=== PATIENT | female | born 1990 | race Caucasian/White ===

== ENCOUNTER 2023-08-30 15:53 | Inpatient (IN) | payer MEDICAID, SELFPAY ==
[2023-08-30 15:56] VITALS: BP 141/95; PULSE 96; RESP 18; TEMP 36.4; O2SAT 98; BMI 32.7
[2023-08-30 16:41] LABS: Absolute Lymphocyte Count 2.29 X10^3/uL (0.83-4.51); Basophil# 0.03 X10^3/uL; Basophil% 0.6 % (0-1); Eosinophil# 0.04 X10^3/uL; Eosinophils% 0.8 % (0-5); Hematocrit 44.3 % (37-47); Hemoglobin 14.5 g/dL (12.0-15.0); Lymphocyte # 2.29 X10^3/ul (0.83-4.51); Lymphocyte % 48.5 % (19-41); Mean Corp Hgb Conc 32.7 g/dL (32-36); Mean Corpuscular Hgb 30.8 pg (27.0-32.0); Mean Corpuscular Volume 94.1 fL (81-99); Mean Platelet Vol. 10.6 fl (6.2-12.0); Monocyte# 0.34 X10^3/uL; Monocyte% 7.2 % (0-10); NRBC Flagged by Analyzer 0 % (0-5); Neutrophil % 42.5 % (47-70); Platelet Count 148 K/mm3 (150-450); RBC Distribution Width CV 13.2 % (11.6-14.6); RBC Distribution Width SD 45.7 fl (35.1-43.9); Red Blood Count 4.71 M/mm3 (4.2-5.4); White Blood Count 4.7 K/mm3 (4.4-11.0)
[2023-08-30 17:09] LABS: Internal QC Validated? YES +Cl - CLEAR BKGD; Pregnancy, Serum, hCG Quali. NEGATIVE Negative
[2023-08-30 17:19] LABS: Anion Gap 8 (5-15); BUN 13 mg/dL (7-18); BUN/Creat Ratio 15.8 RATIO (10-20); Calcium,Total 7.9 mg/dL (8.5-10.1); Chloride 98 mmol/L (98-107); Creatinine, Serum 0.82 mg/dL (0.55-1.02); EST Glomerular Filtration Rate 85 mL/min (>60); Est Glom Filt Rate - Afr Amer 103 mL/min (>60); Estimated Creatinine Clearance 95.78 ml/min; Potassium 3.8 mmol/L (3.5-5.1); Sodium Level 133 mmol/L (136-145)
[2023-08-30 17:21] LABS: Amphetamine Urine VISTA NEGATIVE (<1000 ng/mL); Barbiturate Urine VISTA NEGATIVE (< 200 ng/mL); Benzodiazepine Urine VISTA NEGATIVE (< 200 ng/mL); Cocaine Urine VISTA NEGATIVE (< 300 ng/mL); Ecstacy Urine VISTA NEGATIVE (< 500 ng/mL); Methadone Urine VISTA NEGATIVE (< 300 ng/mL); PCP Urine VISTA NEGATIVE (< 25 ng/mL); THC Urine VISTA POSITIVE (< 50 ng/mL); Vista UDS pH Range 6
[2023-08-30 17:46] LABS: Glucose 642 mg/dL (74-106)
--- NOTE | 2023-08-30 17:55 | EDS_ITS ---
HPI <ELDER Fontaine - Last Filed: 08/30/23 18:35> History of Present Illness Chief Complaint: Substance Abuse Narrative Narrative: Patient is a 32-year-old female with history of alcohol abuse, type 2 diabetes diet depression. Patient currently does not have a PCP, patient does not take any medications daily. She is supposed to be on insulin however does not take any insulin. She was seen Wednesday at another hospital because she was vomiting, her blood sugar was greater than 400 at that time. Patient states that she is here today because she wants to get clean because her life is falling apart. PFSH <ELDER Fontaine - Last Filed: 08/30/23 18:35> [facility] Medical History (Updated 08/30/23 @ 18:35 by ELDER Fontaine) Anxiety Diabetes type 2, uncontrolled Tobacco abuse Allergy/AdvReac Type Severity Reaction Status Date / Time No Known Allergies Allergy Verified 08/30/23 15:56 Surgical History (Updated 08/30/23 @ 15:59 by Kamryn Wellington) H/O: Hx of tonsillectomy Social History Smoking Status: Current every day smoker tobacco type: cigarettes ROS <ELDER Fontaine - Last Filed: 08/30/23 18:35> ROS ED ROS Narrative Constitutional: Negative for fever, chills, weight loss, weakness Eyes: Negative for vision loss, vision change, double vision ENT: Negative for any sore throat, ear pain, congestion Cardiovascular: Negative for any chest pain, tightness, palpitations Respiratory: Negative for any cough, sputum production, hemoptysis, dyspnea, dyspnea on exertion, orthopnea Gastrointestinal: Negative for any abdominal pain, nausea, vomiting, diarrhea, constipation, blood in stool, blood in vomit : Negative for any urinary frequency, dysuria, retention, blood in urine Muscle skeletal: Negative for any muscle joint pain, stiffness, arthralgias, neck pain, back pain. Positive for myalgias Neurological: Negative for any headache, syncope, numbness or tingling, dizziness Skin: Negative for any rashes, lumps, itching, abrasions, lacerations Psychiatric: Negative for any depression, suicidal ideation, homicidal ideation. Positive for anxiety, stress Hematologic: Negative for any easy bruising, excessive bruising, easy bleeding Allergies: Negative for any eczema, hives, rash EXAM <ELDER Fontaine - Last Filed: 08/30/23 18:35> Physical Exam Narrative Exam Narrative: Vital signs reviewed. HEET: Head normocephalic atraumatic, TMs clear bilaterally. Posterior pharynx is clear, dry mucous membranes. Nares clear bilaterally. Neck: Supple with no lymphadenopathy or tenderness. No signs of meningismus, negative jolt sign. Cardiac: Regular rate and rhythm no murmurs gallops or rubs, equal peripheral pulses bilaterally. Respiratory: Lungs clear to auscultation bilaterally. No chest tenderness. Abdomen: Soft, nontender, nondistended. No abdominal bruit or pulsatile masses. No hepatosplenomegaly Extremities: No peripheral edema, no signs of gross trauma or deformity. Active full range of motion of all extremities. Neuro: Cranial nerves II through XII intact, no focal neurological deficits. Skin: Clean dry and intact with no rash, purpura, petechiae, vesicles or pustules. Backs/flank: No CVA tenderness, no midline spinal tenderness, no deformity. Psych: Normal mood and affect. No SI, HI or acute psychosis. Const Vital Signs: 08/30/23 15:56 Temperature 97.6 F L Temperature Source Temporal Pulse Rate 96 Respiratory Rate 18 Blood Pressure 141/95 H Blood Pressure Mean 110 Pulse Ox 98 Oxygen Delivery Method Room Air <Dr. Candido Lemos, - Last Filed: 08/30/23 18:17> Physical Exam Const Vital Signs: 08/30/23 15:56 Temperature 97.6 F L Temperature Source Temporal Pulse Rate 96 Respiratory Rate 18 Blood Pressure 141/95 H Blood Pressure Mean 110 Pulse Ox 98 Oxygen Delivery Method Room Air [facility] <ELDER Fontaine - Last Filed: 08/30/23 18:35> [facility] Lab Data Attestation: I reviewed the patient's lab results. Labs: Laboratory Results - last 24 hr 08/30/23 08/30/23 16:20 16:30 WBC 4.7 RBC 4.71 Hgb 14.5 Hct 44.3 MCV 94.1 MCH 30.8 MCHC 32.7 RDW Std Deviation 45.7 H RDW Coeff of Amanuel 13.2 Plt Count 148 L MPV 10.6 Immature Gran % (Auto) 0.400 Neut % (Auto) 42.5 L Lymph % (Auto) 48.5 H [place] % (Auto) 7.2 Eos % (Auto) 0.8 Baso % (Auto) 0.6 Absolute Neuts (auto) 2.0 Absolute Lymphs (auto) 2.29 Nucleated RBC % 0 Sodium 133 L Potassium 3.8 Chloride 98 Carbon Dioxide 27.0 Anion Gap 8 BUN 13 Creatinine 0.82 Estim Creat Clear Calc 95.78 Est GFR (MDRD) Af Amer 103 Est GFR (MDRD) Non-Af 85 BUN/Creatinine Ratio 15.8 Glucose 642 H* Calcium 7.9 L Serum , Qual NEGATIVE Urine Opiates Screen NEGATIVE Urine Methadone Screen NEGATIVE Ur Barbiturates Screen NEGATIVE Ur Phencyclidine Scrn NEGATIVE Ur Amphetamines Screen NEGATIVE MDMA (Ecstasy) Screen NEGATIVE U Benzodiazepines Scrn NEGATIVE Urine Cocaine Screen NEGATIVE U Cannabinoids Screen POSITIVE H Ur Drug Screen Comment Ethyl Alcohol 97.0 Treatment and Re-Evaluation :: Patient is alert and orient x4. Patient did sign the contract. Here for detox from alcohol, patient is also concerned because her blood sugar has been elevated she does not take her insulin. Patient's laboratory values showed normal CBC, patient's chemistries showed a sodium of 133, patient's blood glucose was 642, patient's serum was negative. Drugs of abuse was positive for marijuana which she does states she does as well as alcohol at 97. Patient is currently not in DKA, patient's carbon dioxide is normal, patient has no anion gap. For the patient's blood glucose, patient was given 2 L of normal saline as well as 15 units of subcu insulin. Patient will be admitted to the hospital for alcohol withdrawal, hyperglycemia, noncompliance. <Dr. Candido Lemos, DO - Last Filed: 08/30/23 18:17> [facility] Narrative Medical decision making narrative: I have personally performed a face to face assessment of the patient and have reviewed the LESLI Note. I performed a substantive portion of the visit including all aspects of the following. My rousseau findings include: History: Patient presents requesting detox from alcohol. Patient states she drinks a lot every day. Patient states she has never been through detox before. Patient denies any suicidal homicidal ideations. Patient states her last drink was approximately 12 hours prior to arrival. Patient denies any tremors or seizures. Patient denies any nausea or vomiting. Exam: Vital signs are stable. Patient is afebrile. Patient is in no acute distress. Oral mucosa is pink and moist. Neck is supple. Trachea is midline. No JVD. Heart was regular rate and rhythm. Lungs are clear and equal bilaterally. Abdomen is soft. Bowel sounds are normal. Cranial nerves II through XII are intact. There are no focal motor or sensory deficits noted. Medical Decision Making: Medical screening labs will be obtained. CBC will be obtained to assess for leukocytosis and anemia. Basic metabolic profile will be obtained to assess for electrolyte abnormality and renal function. Serum hCG will be obtained to assess for . Serum alcohol level will be obtained to assess for alcohol intoxication. Urine tox screen will be obtained to assess for substance abuse. CBC was reviewed and was within normal limits. Basic metabolic profile was reviewed. Glucose was 642. CO2 was normal at 27 anion gap was normal. Sodium was slightly low at 133. Serum hCG was reviewed and was negative. Urine tox sc reen was reviewed and was positive for cannabinoids. Serum alcohol level was reviewed and was 97. She was given IV fluids. Patient was given a dose of insulin. Case will be discussed with the hospitalist for admission for alcohol detox. Patient understands and is agreeable with the plan. All questions were answered. Lab Data Labs: Laboratory Results - last 24 hr 08/30/23 08/30/23 16:20 16:30 WBC 4.7 RBC 4.71 Hgb 14.5 Hct 44.3 MCV 94.1 MCH 30.8 MCHC 32.7 RDW Std Deviation 45.7 H RDW Coeff of Amanuel 13.2 Plt Count 148 L MPV 10.6 Immature Gran % (Auto) 0.400 Neut % (Auto) 42.5 L Lymph % (Auto) 48.5 H [place] % (Auto) 7.2 Eos % (Auto) 0.8 Baso % (Auto) 0.6 Absolute Neuts (auto) 2.0 Absolute Lymphs (auto) 2.29 Nucleated RBC % 0 Sodium 133 L Potassium 3.8 Chloride 98 Carbon Dioxide 27.0 Anion Gap 8 BUN 13 Creatinine 0.82 Estim Creat Clear Calc 95.78 Est GFR (MDRD) Af Amer 103 Est GFR (MDRD) Non-Af 85 BUN/Creatinine Ratio 15.8 Glucose 642 H* Calcium 7.9 L Serum , Qual NEGATIVE Urine Opiates Screen NEGATIVE Urine Methadone Screen NEGATIVE Ur Barbiturates Screen NEGATIVE Ur Phencyclidine Scrn NEGATIVE Ur Amphetamines Screen NEGATIVE MDMA (Ecstasy) Screen NEGATIVE U Benzodiazepines Scrn NEGATIVE Urine Cocaine Screen NEGATIVE U Cannabinoids Screen POSITIVE H Ur Drug Screen Comment Ethyl Alcohol 97.0 Discharge Plan Triage Chief Complaint: Substance Abuse ED Midlevel Provider: George Wild ED Provider: Candido Lemos Dx/Rx/DC Orders Clinical Impression: H/O medication noncompliance, Alcohol abuse, Acute hyperglycemia, Alcohol withdrawal Primary Care Provider: Care Physician,No Primary Referrals: Care Physician,No Primary [Primary Care Provider] - Disposition Disposition: Acute Care Hospital [facility]
[2023-08-30] MEDS: 0.9% Normal Saline (1000mL) 1,000 ML 999 ML IV ×2 (18:22)
[2023-08-30] MEDS: Insulin Lispro 100 UNIT/ML INSULN.PEN 15 UNIT SC (18:27)
--- NOTE | 2023-08-30 18:32 | HP.PCM.HOS_ITS ---
HPI - General General Date of Admission: 08/30/23 Date of Service: 08/30/23 Chief Complaint: Alcohol detox HPI Narrative CHUCK IZAGUIRRE, is a 32 F who presented to the emergency department at [facility] on 08/30/2023 requesting alcohol detox. Patient reports that she drinks extensively and she has done so for a significant amount of time. She is never gone through detox program previously. She is unable to tell me ho w much she drinks light daily but she does drink a lot of hard liquor. She developed some nausea and vomiting and reported some blood-streaked emesis for which she went to [place] emergency department on Wednesday. She was discharged there however she feels like she needs to get her life together so she came to the emergency department here for detox. She has had no further emesis or blood-streaked emesis since that point time. She has a history of diabetes and is supposed to be on insulin however she has not been on this and she has significantly elevated blood sugars. She currently reports some mild tremor but no significant withdrawal symptoms as of yet. Vital signs on presentation were unremarkable. Her CBC is unremarkable other than thrombocytopenia with a platelet count of 148,000. Her hemoglobin is 14.5. She has mild hyponatremia on her chemistry panel at 133 however I suspect this is pseudohyponatremia as her glucose is 642. test is negative. Her tox screen is positive for cannabis but otherwise unremarkable. Ethyl alcohol level is 97.0. She reports her last drink was the yesterday. [facility] Medical History Anxiety Diabetes type 2, uncontrolled Tobacco abuse Home Medications Unobtainable 08/30/23 [History Last Taken Unknown] Allergy/AdvReac Type Severity Reaction Status Date / Time No Known Allergies Allergy Verified 08/30/23 15:56 no significant family history Surgical History H/O: Hx of tonsillectomy Social History (Updated 08/30/23 @ 21:[address] Mary Bowles DO) Smoking Status: Current every day smoker tobacco type: cigarettes alcohol intake: current alcohol intake frequency: 3 or more drinks per day details: Patient reports she drinks a lot of hard liquor substance use type: marijuana ROS Constitutional Constitutional: Denies anorexia, change in weight, chills, fatigue, fever(s), malaise, night sweats, weakness or other Eyes Eyes: Denies blurry vision, change in eye color, change in vision, discharge from eye(s), double vision, erythema, eye pain, loss of vision or other ENT HEENT: Denies abnormal hearing, dysphagia, ear pain, epistaxis, headache(s), hearing loss, nasal congestion, nasal discharge, post nasal drip, sinus pressure, sore throat or other Cardiovascular Cardiovascular: Denies chest pain, claudication, dyspnea on exertion, edema, lightheadedness, orthopnea, palpitations, paroxysmal nocturnal dyspnea, rapid h eart rate, syncope or other Respiratory/Chest Respiratory/Chest: Denies cough, dyspnea, excessive phlegm production, hemoptysis, productive cough, shortness of breath at rest, shortness of breath with exertion, wheezing or other Gastrointestinal Gastrointestinal: Reports hematemesis, nausea and vomiting; Denies abdominal pain, coffee ground emesis, constipation, diarrhea, dyspepsia, hematochezia, lo ose stools, melena or other Genitourinary Genitourinary: Denies burning urination, difficulty urinating, dysuria, hematuria, nocturia, urinary frequency, urinary hesitancy, urinary incontinence, urinary urgency or other Musculoskeletal Musculoskeletal: Denies arthralgias, back pain, joint pain, joint stiffness, joint swelling, myalgias, neck pain or other Neurologic Neurologic: Reports tremor(s); Denies abnormal gait, abnormal speech, confusion, disequilibrium, dizziness, focal weakness, headache(s), numbness, paresthesias, seizure-like activity, seizures, syncope, tingling or other Psychiatric Psychiatric: Reports anxiety and depression; Denies homicidal ideation, suicidal ideation or other Endocrine Endocrinology: Reports polydipsia and polyuria; Denies change in body appearance, cold intolerance, excessive sweating, heat intolerance or other Hematologic/Lymphatic Hematologic/Lymphatic: Denies anemia, easy bleeding, easy bruising, lymphadenopathy or other Allergic/Immunologic Allergic/Immunologic: Denies rhinitis, hives, eczemia, asthma or other Vital Signs Vital Signs Vital Signs: 08/30/23 15:56 Temperature 97.6 F L Temperature Source Temporal Pulse Rate 96 Respiratory Rate 18 Blood Pressure 141/95 H Blood Pressure Mean 110 Pulse Ox 98 Oxygen Delivery Method Room Air Weight Weight: 94.755 kg Body Mass Index (BMI) 32.7 Physical Exam Const alert, oriented x3, no apparent distress and well nourished Constitutional Narrative: Obese, middle-aged, white female, sitting up in bed, appears comfortable, voice is somewhat hoarse General Appearance: cooperative HEENT normocephalic, head/scalp atraumatic and hearing grossly normal bilaterally HEENT Narrative: Mucous membranes are dry, dentition is good, Mallampati is 3, no thrush Eyes PERRL, EOMs intact bilaterally and conjunctivae normal Eyes Narrative: No scleral icterus Resp normal respiratory effort, no retractions, no use of accessory muscles and clear to auscultation bilaterally Auscultation: Negative for rales, rhonchi or wheezes Cardio regular rhythm, S1 normal heart sound, S2 normal heart sound, no murmurs, no rub, no gallops and no clicks Cardio Narrative: Mild tachycardia GI normal to inspection, nondistended, normoactive bowel sounds, soft to palpation and non-tender Extremity no clubbing, cyanosis or edema Extremity Narrative: Pedal pulses are 2+ Neuro oriented x3, CN's II-XII intact bilaterally, moves all extremities and no focal motor deficits Speech: speech normal Motor Exam: strength 5/5 throughout Psych affect normal Psych Narrative: Pleasant, interacts appropriately, eye contact is good Results Lab / Micro Data 08/30/23 16:30 08/30/23 16:30 Labs: Laboratory Results - last 24 hr 08/30/23 16:20: Urine Opiates Screen NEGATIVE, Urine Methadone Screen NEGATIVE, Ur Barbiturates Screen NEGATIVE, Ur Phencyclidine Scrn NEGATIVE, Ur Amphetamines Screen NEGATIVE, MDMA (Ecstasy) Screen NEGATIVE, U Benzodiazepines Scrn NEGATIVE, Urine Cocaine Screen NEGATIVE, U Cannabinoids Screen POSITIVE H, Ur Drug Screen Comment 08/30/23 16:30: WBC 4.7, RBC 4.71, Hgb 14.5, Hct 44.3, MCV 94.1, MCH 30.8, MCHC 32.7, RDW Std Deviation 45.7 H, RDW Coeff of Amanuel 13.2, Plt Count 148 L, MPV 10.6, Immature Gran % (Auto) 0.400, Neut % (Auto) 42.5 L, Lymph % (Auto) 48.5 H, [place] % (Auto) 7.2, Eos % (Auto) 0.8, Baso % (Auto) 0.6, Absolute Neuts (auto) 2.0, Absolute Lymphs (auto) 2.29, Nucleated RBC % 0, Sodium 133 L, Potassium 3.8, Chloride 98, Carbon Dioxide 27.0, Anion Gap 8, BUN 13, Creatinine 0.82, Estim Creat Clear Calc 95.78, Est GFR (MDRD) Af Amer 103, Est GFR (MDRD) Non-Af 85, BUN/Creatinine Ratio 15.8, Glucose 642 H*, Calcium 7.9 L, Serum , Qual NEGATIVE, Ethyl Alcohol 97.0 Assessment & Plan Assessment/Plan (1) Admitted to alcohol detoxification center: (2) Alcohol abuse: (3) Hyperglycemia: (4) Marijuana abuse: (5) Hematemesis: PLAN: Plan Acute alcohol withdrawal -Start phenobarbital taper -CIWA with as needed Ativan -Supportive medications -Thiamine and folate -180 consultation-patient plans for outpatient follow-up after discharge DM-2 with hyperglycemia -Patient has been on no medications for her diabetes -We will start subcu basal insulin and titrate as needed -SSI -Accu-Cheks as ordered -Carb controlled diet -Start lisinopril 2.5 mg daily for renal protection purposes Hematemesis -Resolved-patient had 1 episode on Wednesday -No further hematemesis or emesis since that point time -Hemoglobin is stable -Monitor clinically -We will start PPI as I do suspect she probably has gastritis with her alcohol use Marijuana use -Recommend cessation Tobacco abuse -Nicotine replacement therapy available -Recommend cessation DVT prophylaxis -Low risk -Recommend early and frequent ambulation CODE STATUS -full code Charges/Coding Visit Charges Inpatient E&M: 03344 Init Hosp L2
[2023-08-30 19:13] LABS: Hemoglobin A1c 11.9 % (3.8-5.6)
[2023-08-30 19:28] LABS: Bedside Glucose 335 mg/dL (74-106)
[2023-08-30 20:49] LABS: Bedside Glucose 211 mg/dL (74-106)
[2023-08-30 21:00] VITALS: BP 138/78; PULSE 80; RESP 16; RESP 18; O2SAT 94
[2023-08-30 22:12] VITALS: BMI 32.6
[2023-08-30 22:25] VITALS: BP 159/106; PULSE 71; RESP 20; TEMP 37; O2SAT 99
[2023-08-30] MEDS: Pantoprazole Sodium 40 MG Tablet PO (22:48)
[2023-08-30 22:49] VITALS: PULSE 90
[2023-08-30] MEDS: Phenobarbital 32.4 MG Tablet 64.8 MG PO (23:00)
[2023-08-30] MEDS: 0.9% Saline Lock 10 ML Syringe IV (23:06)
[2023-08-30] MEDS: Lactated Ringers 1,000 ML 150 ML IV (23:06)
[2023-08-30 23:18] VITALS: BP 148/100; PULSE 92; RESP 20; TEMP 37.1; O2SAT 100
[2023-08-30 23:20] LABS: Bedside Glucose 145 mg/dL (74-106)
[2023-08-30] MEDS: Insulin Glargine-YFGN 100 UNIT/ML Pen 20 UNIT SC (23:28)
[2023-08-30] MEDS: hydrOXYzine PAM 25 MG Capsule 50 MG PO (23:42)
[2023-08-31 00:53] LABS: Bedside Glucose 199 mg/dL (74-106)
[2023-08-31] MEDS: Phenobarbital 32.4 MG Tablet 64.8 MG PO ×6 (03:03→22:34)
[2023-08-31 04:21] VITALS: BP 157/101; PULSE 77; RESP 16; TEMP 36.6; O2SAT 97
[2023-08-31] MEDS: Lisinopril 2.5 MG Tablet PO (04:26)
[2023-08-31] MEDS: Lactated Ringers 1,000 ML 150 ML IV (05:48)
[2023-08-31 08:36] LABS: Anion Gap 4 (5-15); BUN 9 mg/dL (7-18); BUN/Creat Ratio 13.8 RATIO (10-20); Calcium,Total 7.7 mg/dL (8.5-10.1); Chloride 105 mmol/L (98-107); Creatinine, Serum 0.65 mg/dL (0.55-1.02); EST Glomerular Filtration Rate 112 mL/min (>60); Est Glom Filt Rate - Afr Amer 135 mL/min (>60); Estimated Creatinine Clearance 120.83 ml/min; Glucose 140 mg/dL (74-106); Magnesium 1.7 mg/dL (1.6-2.6); Phosphorus 3.7 mg/dL (2.5-4.9); Potassium 3.2 mmol/L (3.5-5.1); Sodium Level 139 mmol/L (136-145)
[2023-08-31 09:13] VITALS: BP 125/84; PULSE 99; RESP 18; TEMP 36.9; O2SAT 97
[2023-08-31] MEDS: Pantoprazole Sodium 40 MG Tablet PO (09:18)
[2023-08-31] MEDS: Thiamine Hydrochloride 100 MG Tablet PO (09:18)
[2023-08-31] MEDS: Folic Acid 1 MG Tablet PO (09:18)
--- NOTE | 2023-08-31 10:22 | PCM.PN.HOSP ---
Reason for Visit Reason for Visit: Diagnoses Alcohol abuse, uncomplicated (08/30/23) Cannabis abuse, uncomplicated (08/30/23) Hematemesis (08/30/23) Hyperglycemia, unspecified (08/30/23) Subjective Subjective Feeling better today on present medications, no acute complaints Objective Data Objective Data Vital Signs: Vital Signs Temp Pulse Resp BP Pulse Ox O2 Del Method 98.4 F 99 18 125/84 H 97 Room Air 08/31/23 09:13 08/31/23 09:13 08/31/23 09:13 08/31/23 09:13 08/31/23 09:13 08/31/23 09:13 Oxygen Delivery Method Room Air Weight: 94.5 kg Body Mass Index (BMI) 32.6 Intake & Output: Intake and Output for Last 24 Hours 08/29/23 08/30/23 08/31/23 23:59 23:59 23:59 Intake Total 1999 1500 / 1500 Balance 1999 1500 / 1500 Lab / Micro Data 08/30/23 16:30 08/31/23 06:20 Labs: Laboratory Results - last 24 hr 08/30/23 16:20: Urine Opiates Screen NEGATIVE, Urine Methadone Screen NEGATIVE, Ur Barbiturates Screen NEGATIVE, Ur Phencyclidine Scrn NEGATIVE, Ur Amphetamines Screen NEGATIVE, MDMA (Ecstasy) Screen NEGATIVE, U Benzodiazepines Scrn NEGATIVE, Urine Cocaine Screen NEGATIVE, U Cannabinoids Screen POSITIVE H, Ur Drug Screen Comment 08/30/23 16:30: WBC 4.7, RBC 4.71, Hgb 14.5, Hct 44.3, MCV 94.1, MCH 30.8, MCHC 32.7, RDW Std Deviation 45.7 H, RDW Coeff of Amanuel 13.2, Plt Count 148 L, MPV 10.6, Immature Gran % (Auto) 0.400, Neut % (Auto) 42.5 L, Lymph % (Auto) 48.5 H, [place] % (Auto) 7.2, Eos % (Auto) 0.8, Baso % (Auto) 0.6, Absolute Neuts (auto) 2.0, Absolute Lymphs (auto) 2.29, Nucleated RBC % 0, Sodium 133 L, Potassium 3.8, Chloride 98, Carbon Dioxide 27.0, Anion Gap 8, BUN 13, Creatinine 0.82, Estim Creat Clear Calc 95.78, Est GFR (MDRD) Af Amer 103, Est GFR (MDRD) Non-Af 85, BUN/Creatinine Ratio 15.8, Glucose 642 H*, Hemoglobin A1c 11.9 H, Calcium 7.9 L, Serum , Qual NEGATIVE, Ethyl Alcohol 97.0 08/30/23 19:09: POC Glucose 335 H 08/30/23 20:31: POC Glucose 211 H 08/30/23 22:47: POC Glucose 145 H 08/30/23 23:26: POC Glucose 199 H 08/31/23 06:20: Sodium 139, Potassium 3.2 L, Chloride 105, Carbon Dioxide 30.0, Anion Gap 4 L, BUN 9, Creatinine 0.65, Estim Creat Clear Calc 120.83, Est GFR (MDRD) Af Amer 135, Est GFR (MDRD) Non-Af 112, BUN/Creatinine Ratio 13.8, Glucose 140 H, Calcium 7.7 L, Phosphorus 3.7, Magnesium 1.7, TSH 1.90 Physical Exam Narrative General: Alert, oriented, no apparent distress HEENT: Atraumatic, normocephalic Eyes: extraocular movements grossly intact Neck: Supple Respiratory: normal respiratory effort Cardiovascular: no edema appreciated GI: nondistended Extremities: Moving all extremities Neuro: No overt focal neurological deficits Psych: Cooperative Assessment & Plan Assessment/Plan (1) Admitted to alcohol detoxification center: (2) Alcohol abuse: (3) Hyperglycemia: (4) Marijuana abuse: (5) Hematemesis: PLAN: Plan Acute alcohol withdrawal -Start phenobarbital taper -CIWA with as needed Ativan -Supportive medications -Thiamine and folate -180 consultation-patient plans for outpatient follow-up after discharge -08/31: Feeling better on present medications, continue taper DM-2 with hyperglycemia -Patient has been on no medications for her diabetes -We will start subcu basal insulin and titrate as needed -SSI -Accu-Cheks as ordered -Carb controlled diet -Start lisinopril 2.5 mg daily for renal protection purposes -08/31: Reports her PCP left so she has not been able to get her insulin, patient discussed with case management and social work, doing much better on present regimen Hematemesis -Resolved-patient had 1 episode on Wednesday -No further hematemesis or emesis since that point time -Hemoglobin is stable -Monitor clinically -We will start PPI as I do suspect she probably has gastritis with her alcohol use -08/31: Has not had further episode overnight Marijuana use -Recommend cessation Tobacco abuse -Nicotine replacement therapy available -Recommend cessation DVT prophylaxis -Low risk -Recommend early and frequent ambulation CODE STATUS -full code Charges/Coding Visit Charges Inpatient E&M: 70437 Subs Hosp L1
[2023-08-31 11:23] LABS: Bedside Glucose 131 mg/dL (74-106)
[2023-08-31] MEDS: Insulin Lispro 100 UNIT/ML INSULN.PEN SC ×3 (11:36→22:36)
[2023-08-31 11:50] LABS: Bedside Glucose 224 mg/dL (74-106)
[2023-08-31 13:05] VITALS: O2SAT 97
--- NOTE | 2023-08-31 13:15 | ADDICTION ---
This health underwriter met with PT to conduct ASAM, MSE, AUDIT assessments and to plan for d/c. PT A+Ox4 and participated actively. All assessments completed and placed in PT's chart. PT plans to f/u with [facility] for follow-up intensive outpatient treatment services. PT did not indicate a need for transportation post d/c from [facility].
--- NOTE | 2023-08-31 15:05 | CHAPLAIN ---
Type of Pastoral Visit _x__ Initial Visit ___ Follow-up Visit ___ On-call Visit ___ General Patient Visit ___ Spiritual Assessment ___ Family Conference ___ Bereavement ___ Rapid Response ___ Code Blue ___ Other (describe below) Pastoral Care Referral From _x__ Patient ___ Family ___ Nurse ___ Physician ___ Surgery Attendant ___ Fabrication And Assembly Supervisor ___ Other (describe below) Sacrament/Intervention ___ Active listening ___ Anointing ___ Caodaism ___ Bereavement ___ Communion ___ [place] exploration ___ ___ Life review ___ Prayer ___ Reconciliation ___ Sacrament of Sick _x__ Supportive presence ___ Wedding ___ Other (describe below) Pastoral Comments introduced self and role to patient; pt has been resting; pt says that she is just so tired and I apologize about not being awake or alert; pt indicates thanks for the offer but she just can't stay awake right now
[2023-08-31] MEDS: hydrOXYzine PAM 25 MG Capsule 50 MG PO (17:05)
[2023-08-31 17:12] VITALS: BP 153/99; PULSE 70; RESP 16; TEMP 37.1; O2SAT 95
[2023-08-31 17:43] LABS: Bedside Glucose 276 mg/dL (74-106)
[2023-08-31] MEDS: Insulin Glargine-YFGN 100 UNIT/ML Pen 20 UNIT SC (21:58)
[2023-08-31 22:18] LABS: Bedside Glucose 328 mg/dL (74-106)
[2023-08-31 22:30] VITALS: BP 144/94; PULSE 74; RESP 16; TEMP 36.7; O2SAT 96
[2023-08-31] MEDS: Loperamide 2 MG Capsule PO (22:35)
[2023-08-31] MEDS: Dicyclomine 10 MG Capsule 20 MG PO (22:35)
[2023-09-01] VITALS (8 sets, daily range): BP systolic 144–162; BP diastolic 88–114; PULSE 64–76; RESP 16–17; TEMP 36.6–37; O2SAT 96–100
[2023-09-01] MEDS: Phenobarbital 32.4 MG Tablet 64.8 MG PO ×6 (02:47→22:03)
[2023-09-01 06:51] LABS: Bedside Glucose 143 mg/dL (74-106)
[2023-09-01 07:23] LABS: Anion Gap 5 (5-15); BUN 6 mg/dL (7-18); BUN/Creat Ratio 12.7 RATIO (10-20); Calcium,Total 7.9 mg/dL (8.5-10.1); Chloride 108 mmol/L (98-107); Creatinine, Serum 0.47 mg/dL (0.55-1.02); EST Glomerular Filtration Rate 161 mL/min (>60); Est Glom Filt Rate - Afr Amer 195 mL/min (>60); Estimated Creatinine Clearance 167.11 ml/min; Glucose 161 mg/dL (74-106); Potassium 3.5 mmol/L (3.5-5.1); Sodium Level 141 mmol/L (136-145)
[2023-09-01] MEDS: Thiamine Hydrochloride 100 MG Tablet PO (07:46)
[2023-09-01] MEDS: Folic Acid 1 MG Tablet PO (07:46)
[2023-09-01] MEDS: Pantoprazole Sodium 40 MG Tablet PO (07:47)
[2023-09-01] MEDS: Lisinopril 2.5 MG Tablet PO (07:47)
--- NOTE | 2023-09-01 09:58 | PCM.PN.HOSP ---
Reason for Visit Reason for Visit: Diagnoses Alcohol abuse, uncomplicated (08/30/23) Cannabis abuse, uncomplicated (08/30/23) Hematemesis (08/30/23) Hyperglycemia, unspecified (08/30/23) Subjective Subjective Feeling little bit better, tolerating medication Objective Data Objective Data Vital Signs: Vital Signs Temp Pulse Resp BP Pulse Ox O2 Del Method 98.3 F 70 17 158/103 H 100 Room Air 09/01/23 07:51 09/01/23 07:51 09/01/23 07:51 09/01/23 07:51 09/01/23 07:51 09/01/23 07:51 Oxygen Delivery Method Room Air Weight: 94.5 kg Body Mass Index (BMI) 32.6 Intake & Output: Intake and Output for Last 24 Hours 08/30/23 08/31/23 09/01/23 23:59 23:59 23:59 Intake Total 1999 3280 / 3280 Balance 1999 3280 / 3280 Lab / Micro Data 08/30/23 16:30 09/01/23 06:30 Labs: Laboratory Results - last 24 hr 08/31/23 06:50: POC Glucose 131 H 08/31/23 11:31: POC Glucose 224 H 08/31/23 17:08: POC Glucose 276 H 08/31/23 21:58: POC Glucose 328 H 09/01/23 06:30: Sodium 141, Potassium 3.5, Chloride 108 H, Carbon Dioxide 28.0, Anion Gap 5, BUN 6 L, Creatinine 0.47 L, Estim Creat Clear Calc 167.11, Est GFR (MDRD) Af Amer 195, Est GFR (MDRD) Non-Af 161, BUN/Creatinine Ratio 12.7, Glucose 161 H, Calcium 7.9 L, POC Glucose 143 H Physical Exam Narrative General: Alert, oriented, no apparent distress HEENT: Atraumatic, normocephalic Eyes: extraocular movements grossly intact Neck: Supple Respiratory: normal respiratory effort Cardiovascular: no edema appreciated GI: nondistended Extremities: Moving all extremities Neuro: No overt focal neurological deficits Psych: Cooperative Assessment & Plan Assessment/Plan (1) Admitted to alcohol detoxification center: (2) Alcohol abuse: (3) Hyperglycemia: (4) Marijuana abuse: (5) Hematemesis: PLAN: Plan Acute alcohol withdrawal -Start phenobarbital taper -CIWA with as needed Ativan -Supportive medications -Thiamine and folate -180 consultation-patient plans for outpatient follow-up after discharge -08/31: Feeling better on present medications, continue taper -09/01: Tolerating medicine, feeling better, anxious to go home, if doing well tomorrow may be able to DC DM-2 with hyperglycemia -Patient has been on no medications for her diabetes -We will start subcu basal insulin and titrate as needed -SSI -Accu-Cheks as ordered -Carb controlled diet -Start lisinopril 2.5 mg daily for renal protection purposes -08/31: Reports her PCP left so she has not been able to get her insulin, patient discussed with case management and social work, doing much better on present regimen -09/01: Tolerating present regimen Hematemesis -Resolved-patient had 1 episode on Wednesday -No further hematemesis or emesis since that point time -Hemoglobin is stable -Monitor clinically -We will start PPI as I do suspect she probably has gastritis with her alcohol use -08/31: Has not had further episode overnight -09/01: Continue PPI, resolved Marijuana use -Recommend cessation Tobacco abuse -Nicotine replacement therapy available -Recommend cessation DVT prophylaxis -Low risk -Recommend early and frequent ambulation CODE STATUS -full code Charges/Coding Visit Charges Inpatient E&M: 36794 Subs Hosp L1
[2023-09-01] MEDS: Insulin Lispro 100 UNIT/ML INSULN.PEN SC ×3 (10:55→22:03)
[2023-09-01 11:32] LABS: Bedside Glucose 283 mg/dL (74-106)
[2023-09-01] MEDS: Lisinopril 5 MG Tablet PO (19:09)
[2023-09-01] MEDS: Insulin Glargine-YFGN 100 UNIT/ML Pen 20 UNIT SC (22:04)
[2023-09-01 22:25] LABS: Bedside Glucose 282 mg/dL (74-106)
[2023-09-02 02:00] LABS: Bedside Glucose 277 mg/dL (74-106)
[2023-09-02] MEDS: Phenobarbital 32.4 MG Tablet 64.8 MG PO ×3 (02:29→12:50)
[2023-09-02 02:30] VITALS: BP 135/98; PULSE 66; RESP 16; TEMP 36.6; O2SAT 99
[2023-09-02] MEDS: Gabapentin 300 MG Capsule PO (05:02)
[2023-09-02] MEDS: hydrOXYzine PAM 25 MG Capsule 50 MG PO (05:02)
[2023-09-02] MEDS: Dicyclomine 10 MG Capsule 20 MG PO (05:02)
[2023-09-02] MEDS: Ondansetron 8 MG Tablet PO (05:02)
[2023-09-02] MEDS: Insulin Lispro 100 UNIT/ML INSULN.PEN SC ×2 (06:10→11:10)
[2023-09-02 07:07] LABS: Bedside Glucose 157 mg/dL (74-106)
[2023-09-02 07:29] VITALS: O2SAT 95
[2023-09-02 08:00] VITALS: BP 140/97; PULSE 66; RESP 18; TEMP 37; O2SAT 100
[2023-09-02] MEDS: Pantoprazole Sodium 40 MG Tablet PO (08:03)
[2023-09-02] MEDS: Folic Acid 1 MG Tablet PO (08:03)
[2023-09-02] MEDS: Lisinopril 2.5 MG Tablet PO (08:03)
[2023-09-02] MEDS: Thiamine Hydrochloride 100 MG Tablet PO (08:03)
--- NOTE | 2023-09-02 09:29 | CASEMGMT ---
Discharge Planning A list of?PCP providers including quality and resource use data and consistent with the patient's preferred geographic region, medical needs, and insurance network was created directly from the [facility] website. This list was provided to the RN CM. Francia Saavedra, Discharge Planning Asst.
[2023-09-02 11:10] VITALS: BP 125/85; PULSE 64; RESP 18; TEMP 36.8; O2SAT 98
[2023-09-02] MEDS: Lisinopril 10 MG Tablet PO (11:12)
--- NOTE | 2023-09-02 11:36 | CASEMGMT ---
KRYSTA CM in to pt. room and provided pt. with PCP list that had been prepared by discharge maintenance planning clerk. Pt. states she is comfortable setting up her own PCP appt. Pt. was also provided with a script for a glucometer and supplies. Pt. states she has been a diabetic since she was 16 and feels comfortable with administering her insulin and using the glucometer to check her blood glucose. Pt. denies having any questions/concerns at this time.
--- NOTE | 2023-09-02 12:51 | PCM.DC ---
Discharge Instructions Diet Discharge Diet: Carb Control Diet Activity Discharge Activity: Return to Normal Activity Follow Up Care Test Results: Test results from this visit will be discussed in further detail at your follow-up appointment, if applicable. Discharge Plan Admission Admit Date/Time: 08/30/23 18:28 Primary Reason for Your Visit: Alcohol detox Attending Provider: Ghazal Reyna Primary Care Provider: Care Physician,No Primary Consulting Providers: Mary Bowles Instructions Patient Instructions: Diabetes and Kidney Disease, Blood Sugar Check Steps, Diabetes and Sensitive Topics, ED Withdrawal Alcohol, ED Alcohol Abuse, Diabetes and High Blood Pressure Additional Instructions / Restrictions: DISCHARGE INSTRUCTIONS PLEASE READ *Please take this with you to your next doctors appointment* - It is strongly advised that you refrain from any substance use. Please call [facility] located at [address] [place] [phone] (ph [phone]) if you are interested in further resources -Prescriptions for insulin, Protonix, and lisinopril will be sent to your preferred pharmacy -A prescription for insulin glargine will be sent in for bedtime as well a short acting insulin to use for sliding scale -Sliding scale as follows: 150-199 = 2 units 200-259 = 4 units 260-324 = 6 units 325-374 = 8 units 375-409 = 10 units 410-449 = 11 units Greater than 449 please call your physician -Please call your primary care provider's office upon discharge to schedule a hospital follow up within 1 week. -If you do not have a primary care physician of list of local primary care physicians can be provided for you upon discharge. Please ask for this list prior to discharge -For any concerning signs or symptoms please call 911 or proceed to the nearest emergency department Discharge Orders/Prescriptions Prescriptions: New insulin glargine-yfgn 100 unit/mL (3 mL) Insulin Pen 20 unit subcut QHS 30 Days Qty: 15 2RF lisinopril 10 mg Tablet 10 mg PO DAILY 30 Days Qty: 30 3RF insulin lispro [Humalog KwikPen Insulin] 100 unit/mL Insulin Pen See Rx Instructions .ROUTE .COMPLEX Qty: 15 0RF Protocol: 4. Sliding Scale Insulin High-Med Dosing Condition: 150-199 mg/dl = 2 units Condition: 200-259 mg/dl = 4 units Condition: 260-324 mg/dl = 6 units Condition: 325-374 mg/dl = 8 units Condition: 375-409 mg/dl = 10 units Condition: 410-449 mg/dl = 11 units Condition: Greater than 449 call physician Protocol Text: - Use for Total Daily Dose of Insulin 56-80 units - Patient who are insulin resistant or septic HIGH MEDIUM DOSING ALGORITHM Rx Instructions: TIDAC, will be provided with high medium correction sliding scale pantoprazole 40 mg Tablet,Delayed Release (Dr/Ec) 40 mg PO DAILY 30 Days Qty: 30 3RF Referrals / Follow Up: Care Physician,No Primary [Primary Care Provider] - ( -If you do not have a primary care physician of list of local primary care physicians can be provided for you upon discharge. Please ask for this list prior to discharge ) Disposition Disposition (needs filled in before D/C Order can be placed): Home, Self Care
--- NOTE | 2023-09-02 13:00 | PCM.DC.SUM ---
Providers Date of Admission: 08/30/23 Date of Discharge: 09/02/23 Primary Care Physician: No Primary Care Phys Reason For Visit: HYPERGLYCEMIA/ALCOHOL DETOX Diagnosis Discharge Diagnosis (1) Alcohol abuse: Status: Acute Code(s): F10.10 - Alcohol abuse, uncomplicated (2) Marijuana abuse: Status: Acute Code(s): F12.10 - Cannabis abuse, uncomplicated (3) Hematemesis: Status: Acute Code(s): K92.0 - Hematemesis (4) Diabetes type 2, uncontrolled: Status: Acute Plan Acute alcohol withdrawal DM-2 with hyperglycemia Hematemesis- resolved Marijuana use Tobacco abuse Medications at Discharge Home Medications insulin glargine-yfgn 100 unit/mL (3 mL) subcutaneous pen 20 unit (0.2 mL) subcut QHS 30 days #15 mL 09/02/23 insulin lispro 100 unit/mL subcutaneous pen (Humalog KwikPen (U-100) Insulin) See Rx Instructions .Route .COMPLEX #15 mL 09/02/23 lisinopril 10 mg tablet 10 mg PO DAILY 30 days #30 tabs 09/02/23 pantoprazole 40 mg tablet,delayed release 40 mg PO DAILY 30 days #30 tabs 09/02/23 Hospital Course Summary of Care Provided Minutes Spent on Discharge: 31 Hospital Course: 32-year-old female history of alcohol use and type 2 diabetes not currently taking her insulin presented to [facility] 08/30/2023 requesting alcohol detox, she was also found to have a glucose of 642 and was really started on insulin. Started on phenobarb taper and did well with this and glucose control improved with insulin regimen. Patient completed adequate amount of detox and was stable for discharge home. DC instructions as follows: - It is strongly advised that you refrain from any substance use. Please call [facility] located at [address] [place] [phone] (ph [phone]) if you are interested in further resources -Prescriptions for insulin, Protonix, and lisinopril will be sent to your preferred pharmacy -A prescription for insulin glargine will be sent in for bedtime as well a short acting insulin to use for sliding scale -Sliding scale as follows: 150-199 = 2 units 200-259 = 4 units 260-324 = 6 units 325-374 = 8 units 375-409 = 10 units 410-449 = 11 units Greater than 449 please call your physician -Please call your primary care provider's office upon discharge to schedule a hospital follow up within 1 week. -If you do not have a primary care physician of list of local primary care physicians can be provided for you upon discharge. Please ask for this list prior to discharge -For any concerning signs or symptoms please call 911 or proceed to the nearest emergency department Physical Exam Narrative General: Alert, oriented, no apparent distress HEENT: Atraumatic, normocephalic Eyes: extraocular movements grossly intact Neck: Supple Respiratory: normal respiratory effort Cardiovascular: no edema appreciated GI: nondistended Extremities: Moving all extremities Neuro: No overt focal neurological deficits Psych: Cooperative Weight / BMI Weight Weight: 94.5 kg Body Mass Index (BMI) 32.6 ABG / Lab / Microbiology Data 08/30/23 16:30 09/01/23 06:30 Laboratory: Laboratory Results - last 24 hr 09/01/23 15:54: POC Glucose 277 H 09/01/23 22:02: POC Glucose 282 H 09/02/23 06:08: POC Glucose 157 H D/C Instructions Discharge Diet: Carb Control Diet Meaningful Use Info Meaningful Use Diagnoses (Choose all that apply): None applicable Discharge Plan Admission Admit Date/Time: 08/30/23 18:28 Primary Reason for Your Visit: Alcohol detox Attending Provider: Ghazal Reyna Primary Care Provider: Care Physician,Pooja Primary Consulting Providers: Mary Bowles Instructions Patient Instructions: Diabetes and Kidney Disease, Blood Sugar Check Steps, Diabetes and Sensitive Topics, ED Withdrawal Alcohol, ED Alcohol Abuse, Diabetes and High Blood Pressure Additional Instructions / Restrictions: DISCHARGE INSTRUCTIONS PLEASE READ *Please take this with you to your next doctors appointment* - It is strongly advised that you refrain from any substance use. Please call [facility] located at [address] [place] [phone] (ph [phone]) if you are interested in further resources -Prescriptions for insulin, Protonix, and lisinopril will be sent to your preferred pharmacy -A prescription for insulin glargine will be sent in for bedtime as well a short acting insulin to use for sliding scale -Sliding scale as follows: 150-199 = 2 units 200-259 = 4 units 260-324 = 6 units 325-374 = 8 units 375-409 = 10 units 410-449 = 11 units Greater than 449 please call your physician -Please call your primary care provider's office upon discharge to schedule a hospital follow up within 1 week. -If you do not have a primary care physician of list of local primary care physicians can be provided for you upon discharge. Please ask for this list prior to discharge -For any concerning signs or symptoms please call 911 or proceed to the nearest emergency department Discharge Orders/Prescriptions Prescriptions: New insulin glargine-yfgn 100 unit/mL (3 mL) Insulin Pen 20 unit subcut QHS 30 Days Qty: 15 2RF lisinopril 10 mg Tablet 10 mg PO DAILY 30 Days Qty: 30 3RF insulin lispro [Humalog KwikPen Insulin] 100 unit/mL Insulin Pen See Rx Instructions .ROUTE .COMPLEX Qty: 15 0RF Protocol: 4. Sliding Scale Insulin High-Med Dosing Condition: 150-199 mg/dl = 2 units Condition: 200-259 mg/dl = 4 units Condition: 260-324 mg/dl = 6 units Condition: 325-374 mg/dl = 8 units Condition: 375-409 mg/dl = 10 units Condition: 410-449 mg/dl = 11 units Condition: Greater than 449 call physician Protocol Text: - Use for Total Daily Dose of Insulin 56-80 units - Patient who are insulin resistant or septic HIGH MEDIUM DOSING ALGORITHM Rx Instructions: TIDAC, will be provided with high medium correction sliding scale pantoprazole 40 mg Tablet,Delayed Release (Dr/Ec) 40 mg PO DAILY 30 Days Qty: 30 3RF Referrals / Follow Up: Care Physician,No Primary [Primary Care Provider] - ( -If you do not have a primary care physician of list of local primary care physicians can be provided for you upon discharge. Please ask for this list prior to discharge ) Disposition Disposition (needs filled in before D/C Order can be placed): Home, Self Care Charges/Coding Visit Charges Inpatient E&M: 52233 Disch Hosp >30min
[2023-09-02 13:50] VITALS: BP 114/67; PULSE 71; RESP 18; TEMP 36.7; O2SAT 97
[2023-09-02 16:25] LABS: Bedside Glucose 204 mg/dL (74-106)
== END 2023-09-02 14:20 | disposition home or self-care (01) | DRG 775 ==
LOC: ED 18:35 → MS3 20:33
PROVIDERS: Admitting Provider Internal Medicine; Emergency Provider Emergency Medicine; Visit Provider Internal Medicine
DX: F10.239 Alcohol dependence with withdrawal, unspecified (principal); E11.65 Type 2 diabetes mellitus with hyperglycemia; Z79.4 Long term (current) use of insulin; F12.10 Cannabis abuse, uncomplicated; F17.210 Nicotine dependence, cigarettes, uncomplicated; Y90.4 Blood alcohol level of 80-99 mg/100 ml; Z91.148 Patient's other noncompliance with medication regimen for other reason
CPT/HCPCS: 36415; 80048; 80307; 82077; 82962; 83036; 83735; 84100; 84443; 84703; 85025; 97802; 99283; 99406; J7030; J7120; A4216

== ENCOUNTER 2025-05-14 14:13 | Emergency (ER) | payer MEDICAID, SELFPAY ==
[2025-05-14 14:17] VITALS: BP 176/146; PULSE 107; RESP 18; TEMP 36.7; O2SAT 100; BMI 33.4
[2025-05-14 15:35] LABS: Hematocrit 49.4 % (37-47); Hemoglobin 16.8 g/dL (12.0-15.0); Immature Granulocytes Count 0.050 X10^3/uL (0.0-0.0); Mean Corp Hgb Conc 34.0 g/dL (32-36); Mean Corpuscular Volume 86.5 fL (81-99); Mean Platelet Vol. 9.8 fl (6.2-12.0); NRBC Flagged by Analyzer 0 % (0-5); Platelet Count 248 K/mm3 (150-450); RBC Distribution Width CV 14.0 % (11.6-14.6); RBC Distribution Width SD 43.8 fl (35.1-43.9); Red Blood Count 5.71 M/mm3 (4.2-5.4); White Blood Count 9.8 K/mm3 (4.4-11.0)
[2025-05-14] MEDS: 0.9% Normal Saline (1000mL) 1,000 ML 999 ML IV (15:59)
[2025-05-14 16:13] VITALS: PULSE 79; RESP 18; O2SAT 94
[2025-05-14 16:21] LABS: AST(SGOT) 58 U/L (<=31); Alanine Aminotransfer ALT/SGPT 32 U/L (<=34); Albumin, Serum 4.3 g/dL (3.5-5.0); Alkaline Phosphatase 72 U/L (35-104); Anion Gap 15 (5-15); BUN 13 mg/dL (4-19); BUN/Creat Ratio 18.4 RATIO (10-20); Calcium,Total 9.2 mg/dL (7.6-11.0); Carbon Dioxide 28.6 mmol/L (21.0-32.0); Chloride 94 mmol/L (98-108); Estimated Creatinine Clearance 133.42 ml/min (50-250); Globulin 3.5 g/dL (2.2-4.2); Glucose 288 mg/dL (70-99); Lipase 24 U/L (13-75); Potassium 3.3 mmol/L (3.3-5.1)
[2025-05-14 16:42] LABS: Internal QC Validated? YES +Cl - CLEAR BKGD; Pregnancy, Serum, hCG Quali. NEGATIVE Negative; Record Kit Lot#, Serum Preg. 947241
[2025-05-14 18:00] VITALS: BP 144/99; PULSE 81; RESP 16; O2SAT 99
[2025-05-14 19:10] VITALS: BP 144/99; PULSE 71; RESP 18; O2SAT 98
[2025-05-14 21:02] VITALS: BP 165/100; PULSE 85; RESP 18; TEMP 36.7; O2SAT 100
== END 2025-05-14 21:12 | disposition home or self-care (01) ==
PROVIDERS: Emergency Provider Emergency Medicine; PCP Internal Medicine; Visit Provider Emergency Medicine
DX: R11.2 Nausea with vomiting, unspecified (principal); F19.10 Other psychoactive substance abuse, uncomplicated; E11.43 Type 2 diabetes mellitus with diabetic autonomic (poly)neuropathy; Z79.4 Long term (current) use of insulin; K31.84 Gastroparesis; F10.10 Alcohol abuse, uncomplicated; Z79.899 Other long term (current) drug therapy; F17.210 Nicotine dependence, cigarettes, uncomplicated
CPT/HCPCS: 80053; 82962; 83690; 84703; 85025; 96361; 96372; 96374; 96375; 96376; 99284; A4216; J2405